=== PATIENT | female | born 1940 | race Caucasian/White ===

== ENCOUNTER → 2024-06-18 06:46 | Day surgery (SDC) | payer MEDICARE, OTHER, SELFPAY | LOC: GI 06:46 | PROVIDERS: ATTENDING PHYSICIAN Internal Medicine; FAMILY PHYSICIAN Internal Medicine Geriatric Medicine | DX: Z12.11 Encounter for screening for malignant neoplasm of colon (principal); K64.9 Unspecified hemorrhoids; K57.30 Diverticulosis of large intestine without perforation or abscess without bleeding; K62.89 Other specified diseases of anus and rectum; Z98.0 Intestinal bypass and anastomosis status; Z86.0100 Personal history of colon polyps, unspecified; R12 Heartburn; K22.2 Esophageal obstruction; K44.9 Diaphragmatic hernia without obstruction or gangrene; Z80.0 Family history of malignant neoplasm of digestive organs | CPT/HCPCS: 43235; G0105 ==

== ENCOUNTER 2025-02-03 07:49 | Emergency (ER) | payer MEDICARE, OTHER, SELFPAY ==
[2025-02-03 07:51] VITALS: BP 188/83
[2025-02-03 08:36] VITALS: BP 158/109
--- NOTE | 2025-02-03 08:50 | ED.GENMED ---
History of Present Illness
General
Chief Complaint: Breathing Problem
Time Seen by Provider: 02/03/25 08:33
History of Present Illness
History of Present Illness:
84-year-old female with history of paroxysmal A-fib status post ablation currently on Eliquis, coronary artery disease, hypertension, hyperlipidemia and GERD presents to the emergency department for evaluation of shortness of breath beginning this
morning associated with rapid heart rate. She notes she recently traveled to [place] for several days and held her Lasix during that time to avoid excessive urination. Upon awakening today she noted her heart rate was elevated at 108, she
used her [employer] mobile which showed no signs of A-fib. She feels that she cannot take a full breath. Does have a mild dry cough which she states is secondary to 'sinus stuff'. Denies any fevers, chills, sweats, sore throat, chest pain, nausea,
vomiting, or diarrhea. No pleuritic discomfort. No calf swelling or leg cramping. Has been compliant with her Eliquis
Past History
Past History
ED Past Medical History: HTN, Hypercholesterolemia and Other (Diverticulitis, on daily steroids, PMR)
ED Past Surgical History: Tonsilectomy and Other (: Resection)
Social History
Tobacco: Non-smoker
Alcohol: None
Drug: None
Review of Systems
Review of Systems
Allergies reviewed?: Yes
All Other Systems: ROS reviewed and negative except as documented in HPI and ROS
Phy Exam
Physical Exam
Physical Exam:
GEN: Well appearing, NAD, WDWN
HEENT: Oral mucosa moist, no scleral icterus
Cardiac: Regular rate and rhythm, no murmurs
Lung: No respiratory distress, no tachypnea, lungs clear to auscultation bilaterally
MSK: No gross deformity or injuries, no calf edema
Skin: Good color, no pallor or jaundice, no rashes
Neuro: AO x3, moves all extremities freely
Psych: Calm, cooperative
Scores
Heart Failure Risk
Heart Failure Risk Score: Yes
History of Stroke or TIA: No
History of intubation for respiratory distress: No
Heart rate on ED arrival >/= 110: No
SaO2 <90% on arrival on room air: No
HR >/=110 during 3min walk test (or too ill to perform test): No
ECG has acute ischemic changes: No
Urea >/=12mmol/L (BUN 33.6mg/dL): No
Serum CO2>/=35mmol/L: No
Troponin I or T elevated to [place] Level (0.4mg/dL): No
NT-proBNP >/=5,000ng/L (5,000pg/ml): No
HF Risk Score: 0
Admission Status: LOW RISK 2.8% Consider discharge to home with f/u visit to PCP/[employer]
Course
Orders/Labs/Results
Orders:
Orders
02/03/25 07:55
Electrocardiogram (*1) Urgent
Reason for Study: Shortness of Breath
EKG- Treatment ONCE
02/03/25 08:50
CR Chest - 2 Views Urgent
Comment:
Reason For Exam: SOB
02/03/25 09:25
COVID-19 Antigen Urgent
Source: Nasal Swab
Complete Blood Count/With Diff Urgent
Comprehensive Metabolic Panel Urgent
NT-proBNP Urgent
Troponin I Urgent
Influenza A+B Rapid Molecular Urgent
YUNIER Source: Nasal Swab
Specimen Description:
02/03/25 10:42
Furosemide [Lasix] 20 mg IV NOW STA
Potassium Chloride [KCl] 40 meq PO NOW STA
Abnormal Lab Results
02/03/25
09:25
WBC 16.7 H 10^3/uL
(4.8-10.8)
RBC 3.87 L 10^6/uL
(4.20-5.40)
Hgb 11.6 L g/dL
(12.0-16.0)
Hct 34.2 L %
(37.0-47.0)
Abs Immat Gran (auto) 0.2 H 10^3/uL
(0-0.05)
Absolute Neuts (auto) 12.3 H 10^3/uL
(1.4-6.5)
Absolute Monos (auto) 1.6 H 10^3/uL
(0.1-0.6)
Immature Gran % 1.4 H %
(0-0.5)
Lymphocytes % 12.2 L %
(20.5-51.1)
Monocytes % 9.7 H %
(1.7-9.3)
Creatinine 0.5 L mg/dL
(0.6-1.0)
Glucose 117 H mg/dl
(70-99)
Total Bilirubin 2.3 H mg/dl
(0.2-1.3)
AST 48 H U/L
(14-36)
ALT 94 H U/L
(0-35)
Alkaline Phosphatase 177 H U/L
(38-126)
02/03/25 09:25
02/03/25 09:25
Vital Signs
Initial and Last Documented VS:
Initial Vital Signs
Temp Pulse Resp BP Pulse Ox
97.9 F 104 18 188/83 94
02/03/25 07:51 02/03/25 07:51 02/03/25 07:51 02/03/25 07:51 02/03/25 07:51
Last Documented Vital Signs
Temp Pulse Resp BP Pulse Ox
97.9 F 105 17 150/72 93
02/03/25 07:51 02/03/25 11:26 02/03/25 09:00 02/03/25 11:26 02/03/25 09:57
MDM/Problems Addressed
MDM/Problems Addressed:
Patient's symptoms are most compatible with mild pulmonary edema/acute CHF secondary to recent discontinuation of Lasix. Will restart her Lasix after initial IV bolus dose in the ED, suitable for outpatient management, will refer to her
machinist through the heart failure hotline
*Critical Care Note
Total Time (30-74mins, 75-104mins- exclusive of procedures): Not Applicable
ED Attending Note
-
Portions of this chart may have been created with voice recognition software.� Occasional wrong word or��sound alike� substitutions may have occurred due to the inherent limitations of voice recognition software.
Discharge Plan
Departure
Patient Disposition: Home (Routine Discharge)
Date of Disposition: 02/03/25
Time of Disposition: 10:51
Patient with high blood pressure during this ER visit?: No
Discharge Problem:
Acute heart failure with preserved ejection fraction (HFpEF)
Instructions: *[facility] Heart Failure Instructions
Prescriptions:
No Action
prednisone 1 MG tablet
2 mg PO DAILY
Centrum Silver 1 EACH tablet
0.5 tab PO BID
irbesartan 150 mg Tablet
300 mg PO DAILY
Zyrtec 10 mg Capsule
10 mg PO DAILY
Repatha Pushtronex 420 mg/3.5 mL Wearable Injector
420 mg SC .[id number]
Eliquis 5 mg tablet
5 mg PO BID Qty: 60 5RF
lactase [Lactaid] 3,000 unit Tablet
3,000 unit PO DAILYPRN PRN (Reason: lactose intolerance)
Saccharomyces boulardii [Florastor] 250 mg Capsule
250 mg PO BID
icosapent ethyl [Vascepa] 1 gram Capsule
2 g PO DAILY
icosapent ethyl [Vascepa] 1 gram Capsule
1 g PO QPM
Osteo Bi-Flex Triple Strength 750 mg-644 mg- 30 mg-1 mg Tablet
1 tab PO DAILY
furosemide [Lasix] 20 mg Tablet
20 mg PO DAILY
metoprolol succinate 50 mg tablet extended release 24 hr
100 mg PO BID
Referrals:
Woody Vásquez MD [Family Provider] -
Activity Restrictions/Additional Instructions:
Resume your normal lasix dosing TOMORROW
You were given 20mg IV lasix today
Your machinist will contact you for a follow up
Interventions
Interventions:
*Risk Screen - Suicide Last Done: 02/03/25 07:51
*General Assessment Last Done: 02/03/25 07:51
*Neglect/Abuse Screening Last Done: 02/03/25 07:51
*ED COVID-19 Vaccine History Last Done: 02/03/25 12:00
*Nursing Disposition Last Done: 02/03/25 12:00
ED- Cardiac Assessment Last Done: 02/03/25 09:58
ED- Pulmonary Assessment Last Done: 02/03/25 09:57
Discharge Date and Time
Discharge Date/Time: 02/03/25 12:03
Print Language: SLOVAK
[2025-02-03 09:00] VITALS: BP 159/86
[2025-02-03 09:08] VITALS: BMI 29.1
[2025-02-03 09:39] LABS: % Basophils 0.6 % (0-2); % Eosinophils 2.3 % (0-6); % Immature Granulocytes 1.4 % (0-0.5); % Lymphocytes 12.2 % (20.5-51.1); % Monocytes 9.7 % (1.7-9.3); % Neutrophils 73.8 % (42.2-75.2); Absolute Basophils 0.1 10^3/uL (0-0.2); Absolute Eosinophils 0.4 10^3/uL (0-0.7); Absolute Immature Granulocytes 0.2 10^3/uL (0-0.05); Absolute Monocytes 1.6 10^3/uL (0.1-0.6); Absolute Neutrophils 12.3 10^3/uL (1.4-6.5); Hematocrit 34.2 % (37.0-47.0); Hemoglobin 11.6 g/dL (12.0-16.0); Mean Corp Hgb Conc. 33.9 g/dL (33.0-37.0); Mean Corpuscular Volume 88.4 fL (81.0-99.0); Mean Platelet Volume 10.4 fL (7.4-10.4); Nucleated Red Blood Cells % 0 %; Platelet Count 248 10^3/uL (130-400); Red Blood Cell Count 3.87 10^6/uL (4.20-5.40); Red Cell Dist. Width 12.9 % (11.5-14.5); White Blood Cell Count 16.7 10^3/uL (4.8-10.8)
[2025-02-03 09:53] LABS: ALT (SGPT) 94 U/L (0-35); AST (SGOT) 48 U/L (14-36); Alkaline Phosphatase 177 U/L (38-126); Blood Urea Nitrogen 16 mg/dl (7-17); Calcium 8.9 mg/dl (8.4-10.2); Carbon Dioxide 27 mmol/L (22-30); Chloride 107 mmol/L (98-107); Estimated Creatinine Clearance 66 ml/min; Glucose 117 mg/dl (70-99); Potassium 3.9 mmol/L (3.5-5.1); Sodium 141 mmol/L (135-145); Total Bilirubin 2.3 mg/dl (0.2-1.3); Total Protein 6.8 g/dl (6.3-8.2); eGFR > 60.00
[2025-02-03 09:55] LABS: COVID-19 Antigen Negative (Negative)
[2025-02-03 10:12] LABS: NT-proBNP 2000 pg/ml; Troponin I 0.021 ng/ml
[2025-02-03] MEDS: KCL 40 MEQ PO (11:26)
[2025-02-03] MEDS: LASIX 20 MG IV (11:26)
== END 2025-02-03 12:03 | disposition home or self-care (01) ==
LOC: EMR 07:49
PROVIDERS: Physician Assistant; EMERGENCY PHYSICIAN Emergency Medicine; FAMILY PHYSICIAN Internal Medicine Geriatric Medicine
DX: I50.31 Acute diastolic (congestive) heart failure (principal); I11.0 Hypertensive heart disease with heart failure; I48.0 Paroxysmal atrial fibrillation; I25.10 Atherosclerotic heart disease of native coronary artery without angina pectoris; E78.00 Pure hypercholesterolemia, unspecified; K21.9 Gastro-esophageal reflux disease without esophagitis; Z79.01 Long term (current) use of anticoagulants; Z79.52 Long term (current) use of systemic steroids
CPT/HCPCS: 99283; 96374; 71046; 80053; 83880; 84484; 85025; 87502; 87811; 93005

== ENCOUNTER 2025-03-06 16:53 | Emergency (ER) | payer MEDICARE, OTHER, SELFPAY ==
[2025-03-06 17:00] VITALS: BP 178/79
[2025-03-06 19:15] VITALS: BMI 27.5
[2025-03-06 19:21] VITALS: BP 180/79
--- NOTE | 2025-03-06 19:46 | ED.MUSCINJ ---
HPI-Injury
General
Chief Complaint: Musculo-Skeletal Complaint
Source: patient
Exam Limitations: none
Time Seen by Provider: 03/06/25 19:24
Nursing documentation reviewed up to this point in time: agreed with
History of Present Illness-Injury
Initial Injury comments:
84 yo female from home w h/o afib on Eliquis, CAD, HTN, HLD presents for pain right knee, ankle and foot after a trip and fall at home about 5 hours ago. Getting up from furniture, left foot shoe caught on rug, fell forward put weight on right foot
and twisted right knee, foot and ankle. Unable to weight bear since. Denies hitting head or any other injury.
Past History
Past History
ED Past Medical History: HTN, Hypercholesterolemia and Other (Diverticulitis, on daily steroids, PMR)
ED Past Surgical History: Tonsilectomy and Other (: Resection)
Social History
Tobacco: Non-smoker
Alcohol: None
Drug: None
Review of Systems
Review of Systems
Allergies reviewed?: Yes
All Other Systems: ROS reviewed and negative except as documented in HPI and ROS
Musculoskeletal: Reports other (Pain and swelling right ankle and foot, pain right knee)
Phy Exam
Physical Exam
Physical Exam:
GENERAL: No acute distress. A&Ox3.
CONSTITUTIONAL: Afebrile.
RESPIRATORY: Regular respirations, nonlabored, lungs clear.
CARDIOVASCULAR: Regular rate and rhythm, no murmurs, no rubs.
GI: Soft, nontender
MUSCULOSKELETAL: Mild to moderate swelling and ecchymosis lateral aspect of right ankle and foot with tenderness along the fifth metatarsal as well as the midfoot. Tender to palpate medial malleolus, no significant swelling, no discoloration here.
The right knee is tender to palpate medially, full range of motion, no swelling or discoloration. Moves with ease. Well perfused.
SKIN: Warm, dry, pink
PSYCH: Normal mood and affect. Well kept, interactive and appropriate
NEUROLOGIC: Awake, alert and oriented. No focal neurological deficits
Injury Course
Orders/Labs/Results
Orders:
Orders
03/06/25 17:03
CR Ankle - Right Min 3 Views * Urgent
Comment:
Reason For Exam: Injury
CR Knee- Right 4 Or More View* Urgent
Comment:
Reason For Exam: Injury
03/06/25 17:13
CR Foot - Right Min 3 Views Urgent
Comment:
Reason For Exam: Injury
03/06/25 19:45
Yung Wrap Right-Treatment ONCE
Comment: knee and ankle
Ortho Boot Right- Treatment ONCE
Short or tall?: Tall
MDM/Problems Addressed
Differential Diagnosis Includes:
ST injuries vs fractures
MDM/Problems Addressed:
84 yo female from home w h/o afib on Eliquis, CAD, HTN, HLD presents for pain right knee, ankle and foot after a trip and fall at home about 5 hours ago. Getting up from furniture, left foot shoe caught on rug, fell forward put weight on right foot
and twisted right knee, foot and ankle. Unable to weight bear since. Denies hitting head or any other injury.
X-rays read by this examiner x-ray right foot
Xray right knee: neg for fracture
Fracture base of fifth metatarsal nondisplaced
X-ray right ankle: Tiny avulsion fracture off medial malleolus questionable age, avulsion fracture of navicular laterally
Yung wrap to knee and ankle, ortho boot applied
Patient out of bed and ambulating but not too steadily, walker provided and she is using it well.
Referred to orthopedics
*Pulse Oximetry
SaO2: 100
Oxygen Mode of Delivery: Room air
Patient hypoxic: not evaluated
*Critical Care Note
Total Time (30-74mins, 75-104mins- exclusive of procedures): Not Applicable
ED Attending Note
-
Portions of this chart may have been created with voice recognition software.� Occasional wrong word or��sound alike� substitutions may have occurred due to the inherent limitations of voice recognition software.
Discharge Plan
Departure
Patient Disposition: Home (Routine Discharge)
Date of Disposition: 03/06/25
Time of Disposition: 19:54
Patient with high blood pressure during this ER visit?: No
Condition: Good
Discharge Problem:
Fracture of foot, Fracture of ankle
Instructions: Walking Boot, Using Cold for Pain, Ankle Fracture ED, Foot Fracture ED
Prescriptions:
No Action
prednisone 1 MG tablet
2 mg PO DAILY
Centrum Silver 1 EACH tablet
0.5 tab PO BID
irbesartan 150 mg Tablet
300 mg PO DAILY
Zyrtec 10 mg Capsule
10 mg PO DAILY
Repatha Pushtronex 420 mg/3.5 mL Wearable Injector
420 mg SC .[id number]
Eliquis 5 mg tablet
5 mg PO BID Qty: 60 5RF
lactase [Lactaid] 3,000 unit Tablet
3,000 unit PO DAILYPRN PRN (Reason: lactose intolerance)
Saccharomyces boulardii [Florastor] 250 mg Capsule
250 mg PO BID
icosapent ethyl [Vascepa] 1 gram Capsule
2 g PO DAILY
icosapent ethyl [Vascepa] 1 gram Capsule
1 g PO QPM
Osteo Bi-Flex Triple Strength 750 mg-644 mg- 30 mg-1 mg Tablet
1 tab PO DAILY
furosemide [Lasix] 20 mg Tablet
20 mg PO DAILY
metoprolol succinate 50 mg tablet extended release 24 hr
100 mg PO BID
Referrals:
Woody Vásquez MD [Family Provider, Internal Medicine]
Freddie Cha MD [Active, Orthopedics] - Call in 1-3 days for appt
Activity Restrictions/Additional Instructions:
As we discussed, Tylenol as needed for pain.
Wear the orthopedic boot at all times when up and around until further instructed by the orthopedic doctor
Call the orthopedic doctors office Sunday morning and make next available appointment.
Use the walker as needed
Interventions
Interventions:
*Risk Screen - Suicide Last Done: 03/06/25 19:18
*General Assessment Last Done: 03/06/25 19:15
*Neglect/Abuse Screening Last Done: 03/06/25 19:15
*ED- Fall Risk Assessment Last Done: 03/06/25 19:15
*ED COVID-19 Vaccine History Last Done: 03/06/25 19:15
ED-Musculoskeletal Assessment Last Done: 03/06/25 19:30
Discharge Date and Time
Print Language: NEPALI
== END 2025-03-06 20:25 | disposition home or self-care (01) ==
LOC: EMR 16:53
PROVIDERS: EMERGENCY PHYSICIAN Student in an Organized Health Care Education/Training Program; FAMILY PHYSICIAN Internal Medicine Geriatric Medicine
DX: S82.51XA Displaced fracture of medial malleolus of right tibia, initial encounter for closed fracture (principal); S92.354A Nondisplaced fracture of fifth metatarsal bone, right foot, initial encounter for closed fracture; W01.0XXA Fall on same level from slipping, tripping and stumbling without subsequent striking against object, initial encounter; Y92.009 Unspecified place in unspecified non-institutional (private) residence as the place of occurrence of the external cause; I25.10 Atherosclerotic heart disease of native coronary artery without angina pectoris; I10 Essential (primary) hypertension; I48.91 Unspecified atrial fibrillation; E78.00 Pure hypercholesterolemia, unspecified; Z79.01 Long term (current) use of anticoagulants; Z79.52 Long term (current) use of systemic steroids
CPT/HCPCS: 99283; 73564; 73610; 73630